=== PATIENT | female | born 1995 | race Hispanic/Latino ===

== ENCOUNTER 2024-06-18 23:00 | Emergency (ER) | payer SELFPAY ==
[2024-06-18 23:14] VITALS: BP 98/75
--- NOTE | 2024-06-18 23:47 | ED.GENMED ---
History of Present Illness
General
Chief Complaint: Back Pain
Time Seen by Provider: 06/18/24 23:19
History of Present Illness
History of Present Illness:
29-year-old female without significant past medical history presenting to the emergency department for right-sided back pain. Patient reports symptoms started yesterday after she lifted something heavy. Denies direct trauma to the back. Denies
numbness or tingling to her legs or issues with urination or defecation. Or defecation. Denies fever. Pain radiates from the right side of the back down the leg. Has had difficulty walking secondary to pain. She tried taking 1 tablet of
ibuprofen today, however has difficulty tolerating pills. Denies injuries to her back in the past. Denies chest pain, difficulty breathing, or additional acute medical complaints.
Phy Exam
Physical Exam
Physical Exam:
General: Well-appearing, no clinical signs of dehydration, nontoxic and in no acute distress
HEENT: protecting airway
Neck: appears supple
CV: Normal heart rate, regular rhythm, no evidence of cyanosis
Resp: No accessory muscle use, no increased work of breathing, lungs clear to auscultation bilaterally
Abd: No distention
Extremities: No deformities, no swelling, no erythema, pulses and sensation intact. Reproducible tenderness to the right lumbar musculature with hypertonicity to the musculature. No tenderness to the midline spine. Range of motion to the right
lower extremity is intact.
Neuro: alert, no focal neurologic deficit
: deferred
Rectal: deferred
Psych: Normal affect
Skin: Intact
Course
Orders/Labs/Results
Orders:
Orders
06/18/24 23:31
Ketorolac [Toradol] 30 mg IV NOW STA
diazePAM [Valium Injection] 2 mg IV NOW STA
06/18/24 23:33
Lidocaine [Lidocaine 4% Patch] 1 patch TOPICAL ONCE ONE
Apply Lidocaine patch(s) to:: right back
06/19/24 01:32
Morphine Sulfate 4 mg IV NOW STA
06/19/24 02:34
Dexamethasone Sod Phosphate [Decadron] 10 mg IV NOW STA
HYDROmorphone [Dilaudid] 1 mg IV NOW STA
Vital Signs
Initial and Last Documented VS:
Initial Vital Signs
Temp Pulse Resp BP Pulse Ox
98.2 F 104 24 98/75 95
06/18/24 23:14 06/18/24 23:14 06/18/24 23:14 06/18/24 23:14 06/18/24 23:14
Last Documented Vital Signs
Temp Pulse Resp BP Pulse Ox
98.2 F 104 24 98/75 95
06/18/24 23:14 06/18/24 23:14 06/18/24 23:14 06/18/24 23:14 06/18/24 23:14
MDM/Problems Addressed
MDM/Problems Addressed:
29-year-old female presenting to the emergency department for right-sided back pain. Vital signs are normal.
On exam, patient is in no acute distress, however does appear uncomfortable secondary to pain. Symptom presentation and physical exam appears most consistent with musculoskeletal component, likely sciatica. Do not suspect any concerning etiology
to patient's presenting symptoms. Do not suspect any spinal fracture in the absence of any direct trauma, and no midline spinal tenderness. No fever, systemic symptoms, or midline tenderness, without concern for spinal abscess or infection. No
red flag such as bowel or bladder incontinence, focal weakness, or any sensory deficits on exam, without present concern for spinal compression. Given that patient has issues with swallowing pills, will administer IV Toradol, Valium, lidocaine
patch and reassess for improvement.
02:50 -patient reports that symptoms have improved, however pain still present. Patient redosed with pain medication. She is resting comfortably. Feel stable for discharge with outpatient supportive therapy. Strict return precautions
communicated and patient verbalized understanding
*Critical Care Note
Total Time (30-74mins, 75-104mins- exclusive of procedures): Not Applicable
ED Attending Note
-
Portions of this chart may have been created with voice recognition software.� Occasional wrong word or��sound alike� substitutions may have occurred due to the inherent limitations of voice recognition software.
Discharge Plan
Departure
Referrals:
Marissa Nix MD [Family Provider] -
Interventions
Interventions:
*Risk Screen - Suicide Last Done: 06/18/24 23:01
*General Assessment Last Done: 06/19/24 00:29
*Neglect/Abuse Screening Last Done: 06/18/24 23:14
ED- Fall Risk Assessment Last Done: 06/19/24 00:29
*ED COVID-19 Vaccine History Last Done: 06/18/24 23:14
ED-Musculoskeletal Assessment Last Done: 06/19/24 00:29
Discharge Date and Time
Print Language: ROMANIAN
[2024-06-19] MEDS: VALIUM INJECTION 2 MG IV (00:17)
[2024-06-19] MEDS: TORADOL 30 MG IV (00:18)
[2024-06-19] MEDS: LIDOCAINE 4% PATCH 1 PATCH TOPICAL (00:18)
[2024-06-19 00:29] VITALS: BMI 31.8
[2024-06-19] MEDS: DECADRON 10 MG IV (02:53)
[2024-06-19] MEDS: MORPHINE SULFATE 4 MG IV (02:53)
[2024-06-19] MEDS: DILAUDID 1 MG IV (02:53)
== END 2024-06-19 04:29 | disposition home or self-care (01) ==
LOC: EMR 23:00
PROVIDERS: EMERGENCY PHYSICIAN Student in an Organized Health Care Education/Training Program; FAMILY PHYSICIAN Internal Medicine
DX: M54.9 Dorsalgia, unspecified (principal); X50.0XXA Overexertion from strenuous movement or load, initial encounter
CPT/HCPCS: 99282; 96374; 96375